=== PATIENT | female | born 1970 | race Caucasian/White ===

== ENCOUNTER 2024-01-23 10:03 | Emergency (ER) | payer BC, OTHER ==
[2024-01-23] MEDS ORDERED: ACETAMINOPHEN INJECTION 100 ML IVPB ONE (10:47)
[2024-01-23] MEDS ORDERED: METOCLOPRAMIDE HCL INJECTION 10 MG/2 ML VIAL ONE (10:47)
[2024-01-23] MEDS: METOCLOPRAMIDE HCL INJECTION 10 MG/2 ML VIAL IVPB ONE (11:08)
[2024-01-23] MEDS: ACETAMINOPHEN 1000 MG/100 ML BAG IVPB ONE (11:08)
[2024-01-23] MEDS: LACTATED RINGERS SOLUTION 1000 ML INFUS.BAG IV ONE (11:08)
[2024-01-23 11:18] LABS: BASO % 0.9 % (0-2.0); EOS % 1.3 % (0-4.5); HEMATOCRIT 47.5 % (32.4-45.2); HEMOGLOBIN 16.1 GM/dL (10.7-15.3); LYMPH % 27.7 % (8-40); MCH 30.1 pg (25.7-33.7); MEAN CELL VOLUME 88.5 fl (80-96); MEAN PLT VOLUME 7.6 fl (7.5-11.1); MONO % 6.9 % (3.8-10.2); NEUT % 63.2 % (42.8-82.8); PLATELET COUNT 362 10^3/uL (134-434); RBC 5.37 M/mm3 (3.60-5.2); RDW 13.8 % (11.6-15.6); WHITE BLOOD COUNT 6.4 K/mm3 (4.0-10.0)
[2024-01-23 11:34] LABS: POTASSIUM 4.5 mmol/L (3.5-5.1)
[2024-01-23 11:36] LABS: ALBUMIN 4.4 g/dl (3.4-5.0); BLOOD UREA NITROGEN 20.7 mg/dL (7-18)
[2024-01-23 11:39] LABS: CREATININE 0.7 mg/dL (0.55-1.3)
[2024-01-23 11:41] LABS: BILIRUBIN,TOTAL 0.4 mg/dL (0.2-1); TOT PROT 8.4 g/dl (6.4-8.2)
[2024-01-23 15:12] VITALS: BP 154/64; PULSE 56; RESP 16; TEMP 98.3; BMI 19.8
== END 2024-01-23 13:15 | disposition home or self-care (01) ==
LOC: JER 10:03
PROC: 3E033NZ Introduction of Analgesics, Hypnotics, Sedatives into Peripheral Vein, Percutaneous Approach (ICD-10-PCS; principal; 2024-01-23)
PROC: 3E033GC Introduction of Other Therapeutic Substance into Peripheral Vein, Percutaneous Approach (ICD-10-PCS; 2024-01-23)
DX: R51.9 Headache, unspecified (principal); R11.0 Nausea; R42 Dizziness and giddiness; Z20.822 Contact with and (suspected) exposure to COVID-19
CPT/HCPCS: 0241U-QW; 36415; 70450-TC; 80053; 84484; 85025; 93005; 93010; 99285-25; J0131